=== PATIENT | female | born 1985 | race Asian ===

== ENCOUNTER 2024-12-30 09:54 | Outpatient (AMB) | payer OTHER, SELFPAY ==
--- NOTE | 2024-12-30 10:05 | A.OFFVIS_ITS ---
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 Normal history. 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 Referred from [facility]. She thinks her last Pap smear was 2015. She had her 2 children at [facility] her 1st baby she had a placental abruption and an emergency at 25 weeks the 2nd baby the attempted a uneven got as far as attempting a vacuum but the baby was 8 lb plus and then for reasons they did a . She feels she is healthy she is not on any medications she and her are together and they use condoms and she is happy with that she likes having her normal cycles and does not want to take a lot of medications. 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 She has no worries about STDs but after some discussion she decided to accept the testing just to be thorough. She has a little bit of vitiligo though she is not aware of anyone else in her family that had it. She was born with a little bit of it. 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 Female Reproductive History Menstrual Age of Menarche: 16 Duration of menses: 3-5 days Date of last menstrual period: 12/14/24 control method: none Total pregnancies: 2 Full term: 1 Premature: 1 (25 weeks ) History of abnormal pap smear: No Physical Exam Vital Signs: BMI result Body Mass Index 27.4 Const General: healthy appearing, comfortable, no acute distress, well developed and alert Nutritional Appearance: average body habitus Orientation/consciousness: patient oriented x3 Limitations: no limitations HEENT Head: Yes normocephalic Neck Neck: Yes normal visual inspection Chest Chest palpation & inspection: normal inspection of the chest Breast/axilla inspection: normal inspection of the breasts and normal inspection of the axillae Breast/axilla palpation: normal palpation of the breasts and normal palpation of the axillae Resp Effort & Inspection: normal respiratory effort GI Inspection: Yes normal to inspection, No Abdominal wall edema and No distended Palpation (GI): Soft to palpation and nontender Other: External exam within normal limits her vagina is pink and moist and very clear she has no abnormal discharge whatsoever cervix is parous, pink very smooth mobile nontender uterus is small anteverted mobile nontender. Adnexa non tender. She has good muscle tone. General: Yes bladder normal to palpation External Female Exam: normal external appearance and normal appearance of the urethra Speculum Exam - Vagina: normal appearance of the vagina, normal palpation and normal vaginal discharge Speculum Exam - Cervix: normal appearance of the cervix, normal palpation and nontender Bimanual exam- vagina & uterus: normal bimanual exam, normal palpation, uterine size normal, bladder normal to palpation, consistency normal, normal palpation, uterine mobility normal, uterine shape normal, No Cervical tenderness present, non-tender and no cervical motion tenderness Bimanual Exam- Adnexa, other: normal adnexae, no masses, normal and No adnexal tenderness Neuro General: patient oriented x3 Assessment & Plan Assessment & Plan (1) Well woman exam with routine gynecological exam: Code(s): Z01.419 - Encounter for gynecological examination (general) (routine) without abnormal findings Category: Medical (2) Cervical cancer screening: Code(s): Z12.4 - Encounter for screening for malignant neoplasm of cervix Category: Medical (3) Uses condoms as primary control method: Code(s): Z78.9 - Other specified health status Category: Social Hx Plan -----Discussed in this visit the following: healthy balanced diet, regular and consistent exercise, getting recommended health screens, doing the best she can for her particular health concerns, kegel exercises, pap smear screening and followup recommendations, mammography screening and SBE, normal changes in cycles in her life stage--- . Reviewed what to expect with lab findings and the bacterial vaginosis and yeast are common and essentially normal findings and do not need to be treated unless she is symptomatic. She is a believer in simple non interventive self- care and that works well for her. Reviewed that mammograms will start at age 41. Reviewed her history both obstetrically and otherwise. We will see her again in 1 year. Coding Level of Care Code New Pt Prev Care 18-39yr([id number] Diagnoses Well woman exam with routine gynecological exam Z01.419 Cervical cancer screening Z12.4 Uses condoms as primary control method Z78.9
[2024-12-30 10:10] VITALS: BP 122/72; BMI 27.4
== END 2024-12-30 11:47 | disposition home or self-care (01) ==
LOC: HO.HWSM 09:55
PROVIDERS: PCP Internal Medicine; Visit Provider Advanced Practice Midwife
DX: Z01.419 Encounter for gynecological examination (general) (routine) without abnormal findings (principal)
CPT/HCPCS: 99385; 99459

== ENCOUNTER 2024-12-30 09:54 | Outpatient (REF) | payer OTHER, SELFPAY ==
[2025-01-05 10:14] LABS: HPV Genotype 16 Negative (Negative); HPV Genotype 18 Negative (Negative); HPV High Risk Negative (Negative)
== END 2024-12-30 09:55 | disposition home or self-care (01) ==
LOC: HO.LNP 09:54
PROVIDERS: PCP Internal Medicine; Visit Provider Advanced Practice Midwife
DX: Z01.419 Encounter for gynecological examination (general) (routine) without abnormal findings (principal); Z11.51 Encounter for screening for human papillomavirus (HPV)
CPT/HCPCS: 81515; 87491; 87591; 87626; 88175; 99385; 99459

== ENCOUNTER 2024-12-30 13:15 | Outpatient (REF) | payer OTHER, SELFPAY ==
[2024-12-31 08:44] LABS: Bacterial Vaginosis PCR NEGATIVE (Negative); Candida Group PCR NOT DETECTED (Not Detect); Candida glab krusei PCR NOT DETECTED (Not Detect); Trichomonas vaginalis PCR NOT DETECTED (Not Detect)
[2024-12-31 09:15] LABS: CT PCR NOT DETECTED (Not Detect.); NG PCR NOT DETECTED (Not Detect.)
== END 2024-12-30 13:16 | disposition home or self-care (01) ==
LOC: HO.LAB 13:15
PROVIDERS: Visit Provider Advanced Practice Midwife
DX: Z13.89 Encounter for screening for other disorder (principal)
CPT/HCPCS: 81515; 87491; 87591